=== PATIENT | female | born 1955 | race African-American/Black ===

== ENCOUNTER 2018-06-05 13:11 | Outpatient (CLI) | payer MEDICARE, MEDICAID ==
--- NOTE | 2018-06-05 14:47 | RAD ---
RADIOGRAPH THORACIC SPINE THREE VIEWS: HISTORY: A 62-year-old female with mid back pain, partly due to multiple falls. FINDINGS: There is mild lateral curvature of the thoracic spine. There are multiple moderate-sized endplate ma rginal osteophytes protruding into the prevertebral space, anteriorly and to the right, throughout al l levels of the mid and lower thoracic spine, consistent with DISH and/or multilevel degenerative dis k disease. No gross vertebral body collapse is identified. IMPRESSION: 1. No compression fracture identified. 2. Multilevel degenerative disk disease and/or DISH (diffuse idiopathic skeletal hyperostosis). POS: LINDA
--- NOTE | 2018-06-05 14:52 | RAD ---
CERVICAL SPINE SEVEN VIEWS INCLUDING FLEXION AND EXTENSION AND OBLIQUE VIEWS: HISTORY: Neck pain. TECHNIQUE: Multilevel disk osteophytosis changes are noted. The odontoid and upper C1 are obscured on the AP op en-mouth view. C7-T1 and T1 are partially obscured on the lateral views. There is no significant prevertebral soft tissue swelling. No evidence of abnormal translation betwe en flexion and extension. FINDINGS: 1. Cervical spondylosis. 2. No acute fracture or dislocation involving the visualized cervical spine. 3. No abnormal translation between flexion and extension. POS: RRE
== END 2018-06-05 13:12 | disposition home or self-care (01) ==
LOC: BICRAD 13:11
PROVIDERS: ATTEND Family Medicine
DX: M54.6 Pain in thoracic spine (principal); M54.2 Cervicalgia; G89.29 Other chronic pain; M47.812 Spondylosis without myelopathy or radiculopathy, cervical region; M51.34 Other intervertebral disc degeneration, thoracic region
CPT/HCPCS: 72052; 72072

== ENCOUNTER 2018-08-01 08:42 | Outpatient (CLI) | payer MEDICARE, MEDICAID ==
--- NOTE | 2018-08-01 09:40 | MRI ---
CERVICAL SPINE MRI WITHOUT CONTRAST: 08/01/2018 HISTORY: Back pain, bilateral leg pain, weakness. COMPARISON: None. TECHNIQUE: Multiplanar, multisequence MR imaging of the cervical spine provided without contrast media. FINDINGS: Sagittal STIR imaging demonstrates mild degenerative endplate changes at C5-6. No significant anterolisthesis or retrolisthesis noted within the cervical spine. No prevertebral so ft tissue swelling. C2-3: Disc desiccation. Mild bilateral facet and uncovertebral osteophyte formation with no signifi cant central canal or neural foraminal stenosis. C3-4: Central annular tear and associated central disc protrusion partially effaces ventral thecal s ac and causes mild central canal stenosis. Bilateral facet and uncovertebral osteophyte formation, left greater than right, with moderate/severe left neural foraminal stenosis and mild right neural fo raminal stenosis. C4-5: Disc space narrowing and disc desiccation with disc bulge. Central/right paracentral annular tear with associated central/right paracentral disc protrusion, demonstrating superior migration. This results in moderate central canal stenosis to the right of midline with mild right-sided ventral cervical cord flattening. Bilateral facet and uncovertebral osteophyte formation, right greater than left, with moderate right and mild left neural foraminal stenosis. C5-6: Bilateral facet and uncovertebral osteophyte formation. Disc desiccation and mild disc bulge with partial effacement of ventral thecal sac and mild central canal stenosis. Moderate bilateral neural foraminal stenosis. C6-7: Mild bilateral facet and uncovertebral osteophyte formation. Central annular tear. Mild bila teral neural foraminal stenosis. No significant central canal stenosis C7-T1: No significant central canal or neural foraminal stenosis. No focal area of abnormal signal intensity identified within the cervical cord. IMPRESSION: Multilevel degenerative change within the cervical spine, most prominent at C3-4 and C4-5, as detaile d above. Transcribed Date/Time: 08/01/2018 9:49 AM
--- NOTE | 2018-08-01 10:57 | MRI ---
LUMBAR SPINE MRI WITHOUT CONTRAST: Date: 08/01/18 COMPARISON: None. HISTORY: Back pain, bilateral leg pain and weakness. TECHNIQUE: Multiplanar, multisequence MR imaging lumbar spine without contrast. FINDINGS: The STIR imaging demonstrates edema within bilateral facet joints at L4-5. No focal area of osseous m arrow edema noted otherwise. There is a benign hemangioma within the L1 vertebral body. No anterolist hesis or retrolisthesis. On the basis of five lumbar-type vertebral bodies, the conus medullaris term inates at T12-L1. T12-L1: Mild bilateral facet hypertrophy. Intervertebral disc height and signal intensity within nor mal limits. No central canal or neural foraminal stenosis. L1-2: Mild bilateral facet hypertrophy. Intervertebral disc height and signal intensity within [place] l limits. No significant central canal or neural foraminal stenosis. L2-3: Mild bilateral facet hypertrophy. Intervertebral disc height and signal intensity is within no rmal limits with no significant central canal or neural foraminal stenosis. L3-4: Mild bilateral facet hypertrophy, left greater than right. No significant central canal or dominique ral foraminal stenosis. L4-5: Bilateral facet hypertrophy and hypertrophy of ligamentum flavum with fluid within bilateral f acet joints. Foraminal and post foraminal disc protrusion noted on the left. This finding, in combina tion with left-sided facet hypertrophy, causes a moderate degree of left-sided neural foraminal steno sis. There is mild right neural foraminal stenosis. L5-S1: Bilateral facet hypertrophy, right greater than left. Mild bilateral neural foraminal stenosi s with no significant central canal stenosis. Imaged retroperitoneal structures grossly unremarkable. IMPRESSION: Lumbar spine degenerative change, most prominent at the L4-5 level, left greater than right. POS: OFF
--- NOTE | 2018-08-01 11:06 | MRI ---
Noncontrast enhanced MRI images thoracic spine. HISTORY: Bilateral leg pain and weakness. Multiplanar multisequence noncontrast enhanced MRI images thoracic spine obtained. Intraosseous hemangiomas seen in the T6, T9, T10 and L1 levels. No evidence of acute thoracic spine fracture seen. The spinal cord is unremarkable with no evidence of masses or lesions. Minimal broad-based disc bulge s seen at the T7-8 and T11-12 levels. IMPRESSION: No significant evidence of acute thoracic abnormality seen.
== END 2018-08-01 08:43 | disposition home or self-care (01) ==
LOC: TBSIIMAG 08:42
PROVIDERS: ATTEND Family Medicine
DX: M54.2 Cervicalgia (principal); M54.9 Dorsalgia, unspecified; G89.29 Other chronic pain; M47.816 Spondylosis without myelopathy or radiculopathy, lumbar region; M47.812 Spondylosis without myelopathy or radiculopathy, cervical region
CPT/HCPCS: 72141; 72146; 72148

== ENCOUNTER 2018-12-20 09:53 | Outpatient (CLI) | payer MEDICARE, MEDICAID ==
--- NOTE | 2019-01-08 16:48 | MMO ---
Bilateral MAMMO Bilat Screen [facility]. CLINICAL HISTORY: Patient is 63 years old and is seen for screening. The patient has the following family history of breast cancer: mother. The patient has no personal history of cancer. VIEWS: The views performed were: bilateral craniocaudal with tomosynthesis and bilateral mediolateral oblique with tomosynthesis. FILMS COMPARED: The present examination has been compared to prior imaging studies performed at [facility] on 06/30/2000, 10/22/2010, 09/04/2014 and 10/08/2015. This study has been interpreted with the assistance of computer-aided detection. MAMMOGRAM FINDINGS: There are scattered fibroglandular densities. There are no suspicious masses, suspicious calcifications, or new areas of architectural distortion. IMPRESSION: THERE IS NO MAMMOGRAPHIC EVIDENCE OF MALIGNANCY. A ROUTINE FOLLOW-UP MAMMOGRAM IN 1 YEAR IS RECOMMENDED. THE RESULTS OF THIS EXAM WERE SENT TO THE PATIENT. ACR BI-RADS Category 1 - Negative MAMMOGRAPHY NOTE: 1. A negative mammogram report should not delay a biopsy if a dominant of clinically suspicious mass is present. 2. Approximately 10% to 15% of breast cancers are not detected by mammography. 3. Adenosis and dense breasts may obscure an underlying neoplasm. Reported by: ABUNDIO ARTIS MD Electonically Signed: [id number]
== END 2018-12-20 09:54 | disposition home or self-care (01) ==
LOC: BICMAMMO 09:53
PROVIDERS: ATTEND Family Medicine
DX: Z12.31 Encounter for screening mammogram for malignant neoplasm of breast (principal)
CPT/HCPCS: 77063; 77067

== ENCOUNTER 2021-07-28 10:27 | Outpatient (CLI) | payer MEDICAID, MEDICARE, OTHER | END 2021-07-28 10:28 | disposition home or self-care (01) | LOC: BICMAMMO 10:27 | PROVIDERS: ATTEND Student in an Organized Health Care Education/Training Program | DX: Z12.31 Encounter for screening mammogram for malignant neoplasm of breast (principal); Z80.3 Family history of malignant neoplasm of breast | CPT/HCPCS: 77067 ==

== ENCOUNTER 2022-03-07 09:48 | Outpatient (CLI) | payer MEDICARE, OTHER | END 2022-03-07 09:49 | disposition home or self-care (01) | LOC: BICRAD 09:48 | PROVIDERS: ATTEND Family Medicine | DX: R06.02 Shortness of breath (principal); I51.7 Cardiomegaly; R91.8 Other nonspecific abnormal finding of lung field | CPT/HCPCS: 71046 ==

== ENCOUNTER 2022-07-31 15:01 | Inpatient (IN) | payer OTHER ==
[2022-07-31] MEDS ORDERED: Meclizine HCl 25 MG TAB ONE (16:00)
[2022-07-31 16:48] LABS: #Basophils 0.2 thou/uL (0.0-0.2); #Lymphocytes 0.5 thou/uL (1.20-3.40); #Monocytes 0.4 thou/uL (0.11-0.59); #Neutrophils 6.2 thou/uL (1.40-6.50); %Basophils 2.3 % (0.0-1.0); %Eosinophils 0.2 % (0.0-10.0); %Lymphocytes 7.5 % (21.0-51.0); %Monocytes 5.3 % (0.0-10.0); %Neutrophils 84.6 % (42.0-75.0); Hemoglobin 12.1 g/dL (12.0-16.0); Mean Corpuscular HGB CONC 30.4 g/dL (32.0-36.0); Mean Corpuscular Hemoglobin 25.3 pg (27.0-31.0); Mean Corpuscular Volume 83.4 fl (78.0-98.0); Mean Platelet Volume 9.5 fL (7.4-10.4); Platelet Count 260 10x3/uL (130-400); RBC Distribution Width 13.4 % (11.5-14.5); Red Blood Cell (RBC) Count 4.78 mill/uL (4.20-5.40); White Blood Cell (WBC) Count 7.3 10x3/uL (4.8-10.8)
[2022-07-31 17:01] LABS: ALT (SGPT) 9 U/L (8-55); AST (SGOT) 11 U/L (5-34); Albumin 3.7 g/dL (3.4-4.8); Alkaline Phosphatase 76 U/L (40-110); Anion Gap 10 mmol/L (10-20); BUN (Urea Nitrogen) 13 mg/dL (9.8-20.1); Bilirubin, Total 0.3 mg/dL (0.2-1.2); Calc. Creatinine Clearance 0 mL/min (70-130); Calcium 8.8 mg/dL (7.8-10.44); Carbon Dioxide 29 mmol/L (23-31); Chloride 104 mmol/L (98-107); Estimated GFR 90; Globulin 2.6 g/dL (2.4-3.5); Glucose 120 mg/dL (80-115); Potassium 4.2 mmol/L (3.5-5.1); Protein, Total 6.3 g/dL (5.8-8.1); Sodium 139 mmol/L (136-145)
[2022-07-31] MEDS ORDERED: Meclizine HCl 25 MG TAB PO PRN (19:54)
[2022-07-31 21:15] LABS: #Basophils 0.1 thou/uL (0.0-0.2); #Monocytes 0.4 thou/uL (0.11-0.59); #Neutrophils 5.3 thou/uL (1.40-6.50); %Basophils 0.9 % (0.0-1.0); %Eosinophils 0.3 % (0.0-10.0); %Lymphocytes 14.4 % (21.0-51.0); %Monocytes 6.4 % (0.0-10.0); %Neutrophils 77.9 % (42.0-75.0); Hemoglobin 12.7 g/dL (12.0-16.0); Mean Corpuscular HGB CONC 33.5 g/dL (32.0-36.0); Mean Corpuscular Volume 83.5 fl (78.0-98.0); Mean Platelet Volume 10.1 fL (7.4-10.4); Platelet Count 239 10x3/uL (130-400); RBC Distribution Width 13.5 % (11.5-14.5); Red Blood Cell (RBC) Count 4.54 mill/uL (4.20-5.40); White Blood Cell (WBC) Count 6.8 10x3/uL (4.8-10.8)
[2022-07-31 21:25] LABS: Anion Gap 14 mmol/L (10-20); BUN (Urea Nitrogen) 13 mg/dL (9.8-20.1); Calc. Creatinine Clearance 0 mL/min (70-130); Calcium 8.8 mg/dL (7.8-10.44); Carbon Dioxide 28 mmol/L (23-31); Chloride 106 mmol/L (98-107); Estimated GFR 81; Glucose 134 mg/dL (80-115); Potassium 4.3 mmol/L (3.5-5.1); Sodium 144 mmol/L (136-145)
[2022-07-31 22:58] VITALS: BMI 42.0
[2022-07-31] MEDS: Atorvastatin Calcium 40 MG TAB PO SCH (23:18)
[2022-08-01 05:47] LABS: Cardiac Risk 3.8 (Less than 4.5)
[2022-08-01] MEDS: Aspirin 325 mg Enteric Coated Tablet PO SCH (09:12)
[2022-08-01] MEDS ORDERED: hydrALAZINE 20 MG/ML VIAL SLOW IVP PRN (09:23)
[2022-08-01] MEDS ORDERED: Losartan 25 MG TAB PO SCH (09:45)
[2022-08-01] MEDS: hydrALAZINE 20 MG/ML VIAL SLOW IVP PRN (09:45)
[2022-08-01] MEDS: Losartan 25 MG TAB PO SCH (09:46)
[2022-08-01] MEDS ORDERED: Amlodipine 5 MG TAB PO SCH (17:45)
[2022-08-01] MEDS: Famotidine 20 MG TAB PO SCH (20:18)
[2022-08-01] MEDS: Atorvastatin Calcium 40 MG TAB PO SCH (20:18)
[2022-08-02] MEDS: hydrALAZINE 20 MG/ML VIAL SLOW IVP PRN (03:36)
[2022-08-02] MEDS: Aspirin 325 mg Enteric Coated Tablet PO SCH (08:46)
[2022-08-02] MEDS: Losartan 25 MG TAB PO SCH (08:46)
[2022-08-02] MEDS ORDERED: Amlodipine 5 MG TAB PO SCH (09:00)
[2022-08-02] MEDS: Famotidine 20 MG TAB PO SCH (11:26)
[2022-08-02 17:13] VITALS: BP 159/76; TEMP 98.6
== END 2022-08-02 17:22 | disposition home or self-care (01) | DRG 69 ==
LOC: ERS 15:01 → 2SW 18:26 → OBSVTOIN 08-02 09:33
PROVIDERS: ADMIT Internal Medicine; ATTEND Emergency Medicine
DX: G45.9 Transient cerebral ischemic attack, unspecified (principal); G81.91 Hemiplegia, unspecified affecting right dominant side; I16.0 Hypertensive urgency; E78.5 Hyperlipidemia, unspecified; R47.81 Slurred speech; F17.210 Nicotine dependence, cigarettes, uncomplicated; D50.9 Iron deficiency anemia, unspecified; I10 Essential (primary) hypertension; H81.12 Benign paroxysmal vertigo, left ear; Z98.890 Other specified postprocedural states; Z88.8 Allergy status to other drugs, medicaments and biological substances; Z90.710 Acquired absence of both cervix and uterus; Z79.899 Other long term (current) drug therapy
CPT/HCPCS: 36415; 70450; 70551; 71045; 80053; 80061; 84484; 85025; 93005; 93306; 93880; J0360; J1650